=== PATIENT | female | born 1995 | race Caucasian/White ===

== ENCOUNTER 2018-09-04 10:00 | Inpatient (IN) | payer MEDICAID ==
[2018-09-04] MEDS ORDERED: MISOPROSTOL 200 MCG TAB PR (10:30)
[2018-09-04] MEDS ORDERED: METHYLERGONOVINE 0.2 MG INJ IM (10:30)
[2018-09-04] MEDS ORDERED: CARBOPROST 250 MCG INJ IM (10:30)
[2018-09-04] MEDS ORDERED: BUTORPHANOL 2 MG INJ IV (10:30)
[2018-09-04] MEDS ORDERED: OXYTOCIN 30 UNITS/LR 500 ML IV ×2 (10:30)
[2018-09-04] MEDS ORDERED: IBUPROFEN 600 MG TAB PO (10:30)
[2018-09-04] MEDS ORDERED: LIDOCAINE 1% (MPF) 30 ML INJ INJ (10:30)
[2018-09-04 11:37] LABS: ADD MAN DIFF? NO
[2018-09-04 11:44] LABS: WHITE BLOOD COUNT 8.4 10^3/ul (4.8-10.8)
[2018-09-04 11:44] LABS: BASOPHIL # 0.1 10^3/ul (0.0-0.1); BASOPHILS % 0.8 % (0.0-2.0); EOSINOPHILS # 0.2 10^3/ul (0.0-0.5); EOSINOPHILS % 1.9 % (0.0-7.0); HEMATOCRIT 35.1 % (37.0-47.0); HEMOGLOBIN 11.8 g/dl (12.0-16.0); LYMPHOCYTES # 1.7 10^3/ul (0.8-2.9); LYMPHOCYTES % 20.4 % (15.0-51.0); MEAN CORPUSCULAR HEMOGLOBIN 27.3 pg (29.0-33.0); MEAN CORPUSCULAR HGB CONC 33.6 g/dl (32.0-37.0); MEAN CORPUSCULAR VOLUME 81.1 fl (82.0-101.0); MEAN PLATELET VOLUME 11.2 fl (7.4-10.4); MONOCYTE # 0.8 10^3/ul (0.3-0.9); MONOCYTES % 9.4 % (0.0-11.0); NEUTROPHIL # 5.6 10^3/ul (1.6-7.5); NEUTROPHILS % 66.8 % (39.0-77.0); PLATELET COUNT 237 10^3/UL (140-415); RED BLOOD COUNT 4.33 10^6/ul (4.20-5.40)
[2018-09-04 12:03] LABS: INR 0.78; PT RATIO 0.9
[2018-09-04 12:04] LABS: PARTIAL THROMBOPLASTIN TIME 28.1 Sec (23.0-35.0)
[2018-09-04] MEDS: LACTATED RINGER'S 1,000 ML IV ×3 (12:15→17:55)
[2018-09-04] MEDS: MISOPROSTOL 50 MCG CAPSULE PO ×3 (12:16→20:18)
[2018-09-04 12:58] LABS: HEPATITIS B SURFACE ANTIGEN NEGATIVE (NEGATIVE)
[2018-09-04 17:19] LABS: RAPID PLASMA REAGIN NONREACTIVE (NR)
[2018-09-05] MEDS: MISOPROSTOL 50 MCG CAPSULE PO ×2 (01:08→05:27)
[2018-09-05] MEDS: LACTATED RINGER'S 1,000 ML IV ×4 (01:08→15:13)
[2018-09-05] MEDS: OXYTOCIN 30 UNITS/LR 500 ML IV ×2 (10:24→19:27)
[2018-09-05] MEDS ORDERED: FENTAnyl 2MCG/ML-ROPIV 0.2% 100 ML (12:06)
[2018-09-05] MEDS ORDERED: NALOXONE (0.4 MG/ML) INJ IV (12:30)
[2018-09-05] MEDS ORDERED: FENTAnyl 2MCG/ML-ROPIV 0.2% 100 ML BAG EPI (12:30)
[2018-09-05] MEDS: MINERAL OIL LIGHT 10 ML VIAL TOP (15:00)
[2018-09-05] MEDS: KETOROLAC 30 MG INJ IV (20:05)
[2018-09-05] MEDS: CEFAZOLIN 2 GM/50 ML (PMX) 50 ML IVPB (20:10)
[2018-09-05] MEDS ORDERED: CARBOPROST 250 MCG INJ IM (21:30)
[2018-09-05] MEDS ORDERED: HYDROCODONE/APAP (5/325) TAB PO ×2 (21:30)
[2018-09-05] MEDS ORDERED: OXYTOCIN 30 UNITS/LR 500 ML IV (21:30)
[2018-09-05] MEDS ORDERED: MISOPROSTOL 200 MCG TAB PR (21:30)
[2018-09-05] MEDS ORDERED: ZOLPIDEM 5 MG TAB PO (21:30)
[2018-09-05] MEDS ORDERED: METHYLERGONOVINE 0.2 MG INJ IM (21:30)
[2018-09-05] MEDS ORDERED: DIBUCAINE 1% 30 GM OINT TOP (21:30)
[2018-09-05] MEDS: CEPHALEXIN 500 MG CAP PO (23:55)
[2018-09-05] MEDS: WITCH HAZEL/GLYCERIN PAD PR (23:56)
[2018-09-05] MEDS: IBUPROFEN 600 MG TAB PO (23:56)
[2018-09-05] MEDS: BENZOCAINE 20% 56 ML SPRAY TOP (23:56)
[2018-09-05] MEDS: LANOLIN HPA 1 PKT TOP (23:56)
[2018-09-05] MEDS: LACTATED RINGER'S 1,000 ML IV* (23:57)
[2018-09-06] MEDS: LACTATED RINGER'S 1,000 ML IV* (05:28)
[2018-09-06] MEDS: CEPHALEXIN 500 MG CAP PO ×3 (06:29→18:07)
[2018-09-06] MEDS: IBUPROFEN 600 MG TAB PO ×3 (06:29→18:07)
[2018-09-06 08:30] LABS: ADD MAN DIFF? NO
[2018-09-06 08:34] LABS: WHITE BLOOD COUNT 14.1 10^3/ul (4.8-10.8)
[2018-09-06 08:34] LABS: BASOPHIL # 0.1 10^3/ul (0.0-0.1); BASOPHILS % 0.4 % (0.0-2.0); EOSINOPHILS # 0.2 10^3/ul (0.0-0.5); EOSINOPHILS % 1.1 % (0.0-7.0); LYMPHOCYTES # 2.1 10^3/ul (0.8-2.9); MEAN CORPUSCULAR HEMOGLOBIN 27.5 pg (29.0-33.0); MEAN CORPUSCULAR HGB CONC 33.3 g/dl (32.0-37.0); MEAN CORPUSCULAR VOLUME 82.6 fl (82.0-101.0); MEAN PLATELET VOLUME 11.4 fl (7.4-10.4); MONOCYTE # 1.2 10^3/ul (0.3-0.9); MONOCYTES % 8.7 % (0.0-11.0); NEUTROPHIL # 10.5 10^3/ul (1.6-7.5); NEUTROPHILS % 74.4 % (39.0-77.0); PLATELET COUNT 166 10^3/UL (140-415); RED BLOOD COUNT 3.27 10^6/ul (4.20-5.40); RED CELL DISTRIBUTION WIDTH 14.2 % (11.5-14.5)
[2018-09-06] MEDS: SENNA/DOCUSATE NA (8.6MG/50MG) TAB PO ×2 (09:00→20:46)
[2018-09-06] MEDS: MAGNESIUM HYDROXIDE 30ML CUP PO ×2 (09:49→20:46)
[2018-09-07] MEDS: CEPHALEXIN 500 MG CAP PO ×3 (00:07→12:10)
[2018-09-07] MEDS: IBUPROFEN 600 MG TAB PO ×3 (00:07→12:10)
[2018-09-07] MEDS: DIPHTH/TET/ACEL PERTUSS (ADULT) 0.5 ML VIAL IM* (08:42)
[2018-09-07] MEDS: MEASLES,MUMPS,RUBELLA VACCINE INJ SC* (08:43)
[2018-09-07] MEDS: VARICELLA VACCINE LIVE/PF 1,350 UNIT/0.5 ML ML SC* (09:00)
[2018-09-07] MEDS: MAGNESIUM HYDROXIDE 30ML CUP PO (09:02)
[2018-09-07] MEDS: SENNA/DOCUSATE NA (8.6MG/50MG) TAB PO (09:02)
== END 2018-09-07 13:00 | disposition home or self-care (01) | DRG 807 ==
LOC: L-D 10:00 → PP1 09-05 21:03
PROVIDERS: Obstetrics & Gynecology
PROC: 3E033VJ Introduction of Other Hormone into Peripheral Vein, Percutaneous Approach (ICD-10-PCS; 2018-09-04)
PROC: 10D07Z6 Extraction of Products of Conception, Vacuum, Via Natural or Artificial Opening (ICD-10-PCS; principal; 2018-09-05)
PROC: 0W8NXZZ Division of Female Perineum, External Approach (ICD-10-PCS; 2018-09-05)
DX: O76 Abnormality in fetal heart rate and rhythm complicating labor and delivery (principal); Z37.0 Single live birth; Z3A.40 40 weeks gestation of pregnancy
CPT/HCPCS: 62322; 76815; 85025; 85610; 85730; 86592; 86850; 86900; 86901; 87070; 87340; 88307; 90716; 99464